=== PATIENT | male | born 1990 | race Caucasian/White ===

== ENCOUNTER 2023-04-05 21:14 | Emergency (ER) | payer MEDICAID ==
[~2023-04-05] VITALS: Ht 165.1 cm; Wt 77.1 kg
[2023-04-05 21:18] VITALS: BP 137/80
[2023-04-05 21:20] VITALS: BP 137/80
[2023-04-05] MEDS ORDERED: BACITRACIN OINT 500 UNITS/GM PKT TP ONE (21:30)
--- NOTE | 2023-04-05 22:16 | NUR ---
Patient discharged with v/s stable. Written and verbal after care instructions given and explained. Patient verbalized understanding. Police with in custody. All questions addressed prior to discharge. Advised to follow up with PMD.
--- NOTE | 2023-04-05 22:17 | NUR ---
APPLIED BACITRACIN AND BANDAID TO L SIDE OF FOREHEAD.
== END 2023-04-05 22:16 | disposition home or self-care (01) ==
LOC: MED 21:14
DX: S00.81XA Abrasion of other part of head, initial encounter (principal); X58.XXXA Exposure to other specified factors, initial encounter; Y93.89 Activity, other specified; Y92.89 Other specified places as the place of occurrence of the external cause; Y99.8 Other external cause status
CPT/HCPCS: 99283